=== PATIENT | female | born 1960 | race Caucasian/White ===

== ENCOUNTER 2016-10-01 18:28 | Emergency (ER) | payer MEDICAID ==
[~2016-10-01] VITALS: Ht 154.9 cm; Wt 93.0 kg
[~2016-10-01 18:28] MED LIST: FOLI1TAB19; HYDR200T5; LOSA50TA39; [UNRECOGNIZED DRUG - CODE]
[2016-10-01 18:42] VITALS: BP 176/105
--- NOTE | 2016-10-01 19:00 | NUR ---
Patient taken from ED lobby to XRAY via wheelchair by tech.
[2016-10-01 19:30] LABS: BASOPHILS # (AUTO) 0.2 K/uL (0.00-0.22); BASOPHILS % (AUTO) 1.5 % (0.0-2.0); EOSINOPHILS # (AUTO) 0.2 K/uL (0-0.4); HEMATOCRIT 43.1 % (36-48); HEMOGLOBIN 14.3 g/dL (12.0-16.0); LYMPHOCYTES # (AUTO) 2.9 K/uL (2.5-16.5); LYMPHOCYTES % (AUTO) 27.5 % (20.5-51.1); MEAN CORPUSCULAR HEMOGLOBIN 29 pg (27-31); MEAN CORPUSCULAR HGB CONC 33 g/dL (33-37); MEAN CORPUSCULAR VOLUME 87 fL (80-94); MONOCYTES # (AUTO) 0.6 K/uL (0.8-1.0); MONOCYTES % (AUTO) 5.6 % (1.7-9.3); NEUTROPHILS # (AUTO) 6.8 K/uL (1.8-7.7); NEUTROPHILS % (AUTO) 63.4 % (42.2-75.2); PLATELET COUNT (AUTO) 253 K/uL (140-450); RED BLOOD CELL COUNT(AUTO) 4.96 MIL/uL (4.20-5.40); RED CELL DISTRIBUTION WIDTH 13.2 % (11.6-13.7); WHITE BLOOD COUNT (AUTO) 10.7 K/uL (4.8-10.8)
[2016-10-01 19:54] LABS: ALBUMIN 4.2 g/dL (3.4-5.0); ANION GAP 10.1 (8-16); CALCIUM 9.2 mg/dL (8.5-10.1); CARBON DIOXIDE 31.5 mmol/L (21-32); CREATININE 0.7 mg/dL (0.6-1.3); INR 1.1 (0.8-1.2); POTASSIUM 3.6 mmol/L (3.5-5.1); PROTHROMBIN TIME 10.6 secs (10.8-13.4); TOTAL BILIRUBIN 0.3 mg/dL (0.0-1.0); TOTAL PROTEIN, SERUM 8.9 g/dL (6.4-8.2)
--- NOTE | 2016-10-01 21:02 | NUR ---
PT TAKEN TO BED 3
--- NOTE | 2016-10-01 21:04 | NUR ---
Dr. Packer evaluating patient at bedside.
[2016-10-01] MEDS ORDERED: KETOROLAC 60 MG/2 ML VIAL IM ONE (21:10)
--- NOTE | 2016-10-01 21:10 | NUR ---
PATIENT PRESENTS TO ED WITH C/O CHEST PAIN AND ANXIETY . PT DENIES N/V/D; SKIN IS PINK/WARM/DRY; AAOX4 WITH EVEN AND STEADY GAIT; LUNGS CLEAR BL; HR EVEN AND REGULAR; PT DENIES ANY FEVER, SOB, OR COUGH AT THIS TIME; PATIENT STATES PAIN OF 5/10 AT THIS TIME; VSS; PATIENT POSITIONED FOR COMFORT; HOB ELEVATED; BEDRAILS UP X2; BED DOWN. ER MD MADE AWARE OF PT STATUS.
[2016-10-01 21:32] VITALS: BP 156/99
== END 2016-10-01 21:25 | disposition home or self-care (01) ==
LOC: MED 18:28
DX: R07.89 Other chest pain (principal); J44.9 Chronic obstructive pulmonary disease, unspecified; I10 Essential (primary) hypertension; Z88.1 Allergy status to other antibiotic agents
CPT/HCPCS: 36415; 71010; 80053; 83880; 84484; 85025; 85610; 85730; 93005; 96372; 99285; J1885

== ENCOUNTER 2017-02-15 22:09 | Emergency (ER) | payer MEDICAID ==
[~2017-02-15] VITALS: Ht 154.9 cm; Wt 93.4 kg
[~2017-02-15 22:09] MED LIST changes: -FOLI1TAB19; +FOLIC ACID1 M1; +HUMIRA40 MG/0.1; -HYDR200T5; -LOSA50TA39; +LOSARTAN POTASS50 MG; +PLAQUENIL200 M1; -[UNRECOGNIZED DRUG - CODE]
[2017-02-15 22:16] VITALS: BP 139/71
[2017-02-16] MEDS: KETOROLAC 60 MG/2 ML VIAL IM ONE (00:24)
[2017-02-16 00:28] VITALS: BP 124/68
== END 2017-02-16 00:29 | disposition home or self-care (01) ==
LOC: MED 22:09
DX: S90.121A Contusion of right lesser toe(s) without damage to nail, initial encounter (principal); I10 Essential (primary) hypertension; J44.9 Chronic obstructive pulmonary disease, unspecified; Z88.1 Allergy status to other antibiotic agents; Z79.899 Other long term (current) drug therapy; W22.03XA Walked into furniture, initial encounter; Y93.89 Activity, other specified; Y92.89 Other specified places as the place of occurrence of the external cause; Y99.8 Other external cause status
CPT/HCPCS: 73630; 96372; 99284; J1885

== ENCOUNTER 2018-05-02 22:46 | Emergency (ER) | payer MEDICAID ==
[~2018-05-02] VITALS: Ht 157.5 cm; Wt 91.6 kg
[~2018-05-02 22:46] MED LIST changes: +FOLI1TAB19; -FOLIC ACID1 M1; -HUMIRA40 MG/0.1; +HYDR200T5; +LOSA50TA66; -LOSARTAN POTASS50 MG; -PLAQUENIL200 M1; +[UNRECOGNIZED DRUG - CODE]
[2018-05-02 22:51] VITALS: BP 147/81
--- NOTE | 2018-05-02 23:00 | NUR ---
57/F PRESENTS TO ED, C/O 11/23 NONRADIATING CHEST PRESSURE, INTERMITTENTLY X3 DAYS. PT REPORTS HAVING COLD SYMPTOMS AND SUBJECTIVE FEVER 3 DAYS, AFEBRILE AT THIS TIME. PT REPORTS NONPRODUCTIVE COUGH X3 DAYS. PT DENIES SOB OR N/V. PT AOX4, GCS 15, RR EVEN AND UNLABORED. HX HTN, ASTHMA, RA, ANEMIA RX HUMIRA, PLAQUENIL, LOSARTAN, FERROUS SULFATE, CALCIUM
[2018-05-02] MEDS ORDERED: ASPIRIN 81 MG TAB.CHEW PO ONE (23:05)
[2018-05-02] MEDS ORDERED: NACL 0.9% 1,000 ML IV ONE (23:05)
[2018-05-02] MEDS ORDERED: FOLIC ACID (23:17)
[2018-05-02] MEDS ORDERED: CALC-1086 (23:17)
[2018-05-02] MEDS ORDERED: KETOROLAC 30 MG/ML VIAL IVP ONE (23:20)
[2018-05-02 23:29] LABS: BASOPHILS % (AUTO) 0.3 % (0.0-2.0); EOSINOPHILS # (AUTO) 0.2 K/uL (0-0.4); EOSINOPHILS % (AUTO) 2.5 % (0.0-4.0); HEMOGLOBIN 12.9 g/dL (12.0-16.0); LYMPHOCYTES # (AUTO) 3.7 K/uL (2.5-16.5); LYMPHOCYTES % (AUTO) 38.8 % (20.5-51.1); MEAN CORPUSCULAR HEMOGLOBIN 28 pg (27-31); MEAN CORPUSCULAR HGB CONC 32 g/dL (33-37); MONOCYTES # (AUTO) 0.5 K/uL (0.8-1.0); MONOCYTES % (AUTO) 5.5 % (1.7-9.3); NEUTROPHILS # (AUTO) 5.1 K/uL (1.8-7.7); NEUTROPHILS % (AUTO) 52.9 % (42.2-75.2); PLATELET COUNT (AUTO) 222 K/uL (140-450); RED BLOOD CELL COUNT(AUTO) 4.55 MIL/uL (4.20-5.40); RED CELL DISTRIBUTION WIDTH 14.4 % (11.6-13.7); WHITE BLOOD COUNT (AUTO) 9.6 K/uL (4.8-10.8)
[2018-05-02 23:44] LABS: ANION GAP 10.9 (8-16); POTASSIUM 3.9 mmol/L (3.5-5.1)
[2018-05-02 23:49] LABS: TOTAL BILIRUBIN 0.3 mg/dL (0.0-1.0)
[2018-05-02 23:50] LABS: ALBUMIN 3.8 g/dL (3.4-5.0)
[2018-05-02 23:54] LABS: PROTHROMBIN TIME 9.7 secs (10.8-13.4)
[2018-05-03 00:13] VITALS: BP 146/77
--- NOTE | 2018-05-03 00:13 | NUR ---
Patient discharged with v/s stable. Written and verbal after care instructions given and explained. Patient alert, oriented and verbalized understanding of instructions. Ambulatory with steady gait. All questions addressed prior to discharge. ID band removed. Patient advised to follow up with PMD. Rx of PROMETHAZINE given. Patient educated on indication of medication including possible reaction and side effects. Opportunity to ask questions provided and answered.
== END 2018-05-03 00:13 | disposition home or self-care (01) ==
LOC: MED 22:46
DX: J06.9 Acute upper respiratory infection, unspecified (principal); J44.9 Chronic obstructive pulmonary disease, unspecified; I10 Essential (primary) hypertension; Z88.1 Allergy status to other antibiotic agents; Z79.899 Other long term (current) drug therapy
CPT/HCPCS: 36415; 71045; 80053; 84484; 85025; 85610; 85730; 93005; 96374; 99284; J1885; J7030; Q0092

== ENCOUNTER 2018-11-09 16:08 | Emergency (ER) | payer MEDICAID ==
[~2018-11-09] VITALS: Ht 165.1 cm; Wt 81.6 kg
[~2018-11-09 16:08] MED LIST changes: +CALC-1086; +FOLIC ACID
[2018-11-09 16:21] VITALS: BP 193/93
--- NOTE | 2018-11-09 16:26 | NUR ---
PT BIB SON TO THE ED WITH THE CHIEF C/O PALPITATION. PT WAS HYPERVENTILATING. A/O X4. FOLLOWS COMMAND. HR 86 SPO2 100 IN ROOM AIR. HAS ELEVATED BP. PT HAS NOT TAKEN HER LOSARTAN TODAY. PT HAS HX OF ANXIETY, ASTHMA, RA, HTN. C/O LEFT CHEST PAIN 12/24. LUNGS CLEAR. ABDOMEN SOFT, ROUND AND NON-TENDER. ACTIVE BOWEL SOUND. DENIES FEVER. DENIES N/V/D. ER MD AWARE OF PT STATUS.
--- NOTE | 2018-11-09 17:55 | NUR ---
Pt. appears to be relaxed, resting in bed. Breathing normally. SPO2 97% in room air. No Sob or acute respiratory distress noted. Pt. verbalized feeling better.
[2018-11-09 19:02] VITALS: BP 122/59
== END 2018-11-09 19:00 | disposition home or self-care (01) ==
LOC: MED 16:08
DX: F41.0 Panic disorder [episodic paroxysmal anxiety] (principal); J45.909 Unspecified asthma, uncomplicated; I10 Essential (primary) hypertension; M06.9 Rheumatoid arthritis, unspecified; Z79.899 Other long term (current) drug therapy; Z88.1 Allergy status to other antibiotic agents
CPT/HCPCS: 93005; 99283; 99284

== ENCOUNTER 2020-03-06 19:07 | Inpatient (IN) | payer MEDICAID, SELFPAY ==
[~2020-03-06] VITALS: Ht 154.9 cm; Wt 89.8 kg
[2020-03-06 19:14] VITALS: BP 170/90
--- NOTE | 2020-03-06 19:24 | NUR ---
PT TAKEN TO ER BED 8 VIA W/C
--- NOTE | 2020-03-06 19:35 | NUR ---
PT BIB SELF FOR C/O MIGRAINE X 2 DAYS. PT A&O X 4. PERRLA 3MM BRISK. PT PRESENTS TEARFUL, "THE PAIN IS BAD, I THINK IT COMES BECAUSE I HAVE ANXIETY." PT STATES PAIN RADIATED FROM FRONTAL LOBE TO OCCIPITAL LOBE. PT STATES LAST OTC MEDICATION WAS TAKEN YESTERDAY AT 1800 WITH INEFFECTIVE RESULTS. PT DENIES DIZZYNESS, SENSITIVITY TO LIGHT, N/V/D. PT STATES," I FEEL VERY STRESSED AND LIKE I'M HAVING ANIXETY RIGHT NOW." PT ON PULPWOOD CUTTER. MEDHX: ANXIETY, DEPRESSION, ARTHRITIS ALLERGIES: AMOXICILLIN
--- NOTE | 2020-03-06 19:59 | NUR ---
ERMD AT BEDSIDE.
[2020-03-06] MEDS ORDERED: NACL 0.9% 3,000 ML IV ONE (20:20)
[2020-03-06] MEDS ORDERED: NACL 0.9% 2,000 ML IV ONE (20:20)
[2020-03-06] MEDS ORDERED: VANCOMYCIN 1,000 MG in DEXTROSE 5% 250 ML IV ONE (20:20)
[2020-03-06] MEDS ORDERED: MORPHINE SULFATE 4 MG/ML SYR ONE (20:26)
[2020-03-06] MEDS ORDERED: diphenhydrAMINE 50 MG/ML VIAL IVP ONE (20:30)
[2020-03-06] MEDS ORDERED: MORPHINE SULFATE 4 MG/ML SYR IVP ONE (20:30)
[2020-03-06] MEDS ORDERED: ACETAMINOPHEN EXTRA STRENGTH 500 MG TAB PO ONE (20:30)
[2020-03-06] MEDS ORDERED: PROCHLORPERAZINE 10 MG/2 ML VIAL IVP ONE (20:30)
[2020-03-06] MEDS ORDERED: LORazepam 2 MG/ML VIAL ONE (20:57)
[2020-03-06 21:03] LABS: BASOPHILS % (AUTO) 0.4 % (0.0-2.0); EOSINOPHILS # (AUTO) 0.1 K/uL (0-0.4); HEMATOCRIT 42.2 % (36-48); HEMOGLOBIN 14.2 g/dL (12.0-16.0); LYMPHOCYTES # (AUTO) 1.2 K/uL (2.5-16.5); LYMPHOCYTES % (AUTO) 10.1 % (20.5-51.1); MEAN CORPUSCULAR HEMOGLOBIN 29 pg (27-31); MEAN CORPUSCULAR HGB CONC 34 g/dL (33-37); MEAN CORPUSCULAR VOLUME 87.4 fL (80-94); MONOCYTES # (AUTO) 0.6 K/uL (0.8-1.0); NEUTROPHILS # (AUTO) 10.2 K/uL (1.8-7.7); NEUTROPHILS % (AUTO) 83.5 % (42.2-75.2); PLATELET COUNT (AUTO) 200 K/uL (140-450); RED BLOOD CELL COUNT(AUTO) 4.83 MIL/uL (4.20-5.40); RED CELL DISTRIBUTION WIDTH 13.9 % (11.6-13.7); WHITE BLOOD COUNT (AUTO) 12.2 K/uL (4.8-10.8)
[2020-03-06] MEDS ORDERED: LORazepam 2 MG/ML VIAL IVP ONE (21:05)
--- NOTE | 2020-03-06 21:10 | NUR ---
PT TAKEN TO CT
--- NOTE | 2020-03-06 21:10 | NUR ---
PT STATES UNABLE TO GIVE UA AT THIS TIME, IVF BEING GIVEN. ERMD MADE AWARE.
[2020-03-06 21:14] LABS: ANION GAP 13.8 (8-16); CARBON DIOXIDE 27.8 mmol/L (21-32); CREATININE 0.8 mg/dL (0.6-1.3); POTASSIUM 3.6 mmol/L (3.5-5.1); TOTAL BILIRUBIN 0.9 mg/dL (0.0-1.0)
[2020-03-06] MEDS ORDERED: VANCOMYCIN 1,000 MG VIAL ONE (21:22)
[2020-03-06] MEDS ORDERED: cefTRIAXone 1,000 MG VIAL ONE (21:23)
--- NOTE | 2020-03-06 21:38 | NUR ---
PT RETURNED FROM CT.
--- NOTE | 2020-03-06 21:40 | NUR ---
PT GAVE UA SAMPLE.
--- NOTE | 2020-03-06 21:50 | NUR ---
CONSENT GIVEN FOR LUMBAR PUNCTURE AND SIGNED BY ERMD AND PATIENT. REASONS AND RISKED EXPLAINED TO PT.
[2020-03-06] MEDS ORDERED: LIDOCAINE MPF 1% 5 ML ONE ×2 (22:08→22:10)
[2020-03-06] MEDS ORDERED: LIDOCAINE MPF 1% 10 MG/ML VIAL INJ ONE (22:10)
[2020-03-06 22:15] LABS: APPEARANCE,URINE CLEAR (CLEAR); BILIRUBIN,URINE NEGATIVE (NEGATIVE); BLOOD, URINE NEGATIVE (NEGATIVE); COLOR,URINE YELLOW (YELLOW); LEUKOCYTE ESTERASE ,URINE NEGATIVE (NEGATIVE); NITRITE, URINE NEGATIVE (NEGATIVE); UGLUCOSE NEGATIVE (NEGATIVE)
--- NOTE | 2020-03-06 22:15 | NUR ---
Dr. Gutierrez at patient bedside for procedure.
--- NOTE | 2020-03-06 22:20 | NUR ---
Mark klein in ED - 03/06/20 at 2324 by [email or web address] CSF COLLEZHANE. GIVEN TO TOPPER PACKER
--- NOTE | 2020-03-06 22:40 | NUR ---
CSF COLLECED. GIVEN TO MILL LABOR SUPERVISOR KALEB.
--- NOTE | 2020-03-06 23:41 | NUR ---
Patient appears to be resting comfortably in bed. Vital Signs within normal limits. Respirations even and unlabored. Pt remains on ekg monitor.
[2020-03-06 23:57] LABS: CSF GLUCOSE 58 mg/dL (40-70); CSF PROTEIN 40.3 mg/dL (15-45)
--- NOTE | 2020-03-07 01:22 | NUR ---
Patient appears to be resting comfortably in bed. Vital Signs within normal limits. Respirations even and unlabored. Pt remains on lunchroom monitor. Bed is locked and in lowest position.
--- NOTE | 2020-03-07 03:43 | NUR ---
PT AMBULATED TO RESTROOM WITH STEADY GAIT.
--- NOTE | 2020-03-07 03:47 | NUR ---
PT AMBULATED TO BED WITH STEADY GAIT. PT ATTATCHED TO GRAB JACK WORKER. NO C/O PAIN AT THIS TIME. BED LOCKED AND IN LOWEST POSTION.
--- NOTE | 2020-03-07 04:58 | NUR ---
Patient appears to be resting comfortably in bed. Vital Signs within normal limits. Respirations even and unlabored. Pt remain on clinical research monitor. Pt bed is locked and in lowest position.
--- NOTE | 2020-03-07 06:00 | NUR ---
Patient appears to be resting comfortably in bed. Vital Signs within normal limits. Respirations even and unlabored. PT REMAINS ON CARDIAC MONTIOR.
--- NOTE | 2020-03-07 06:15 | NUR ---
PT AMBULATED TO RESTROOM WITH STEADY GAIT.
--- NOTE | 2020-03-07 07:20 | NUR ---
Note latoya in EDM - 03/07/20 at 0724 by MICHELLE Patient will be admitted to care of DR. YEH. Admited to TELE. Will go to room 126A. Belongings list completed. Report to SONDRA CRUZ.
--- NOTE | 2020-03-07 07:20 | NUR ---
Patient will be admitted to care of DR. YEH. Admited to TELE. Will go to room 126A. Belongings list completed. Report to SONDRA CRUZ.
--- NOTE | 2020-03-07 07:20 | NUR ---
RECEIVED REPORT FROM ER NURSE. PATIENT ABLE TO AMBULATE TO [facility] BED WITH STEADY GAIT. HEADACHE WITHIN TOLERABLE AT THIS TIME. AAOX3, CALM, COOPERATIVE, APPROPRIATE AFFECT. SKIN COLOR APPROPRIATE TO ETHNICITY, WARM TO TOUCH. SKIN INTACT. RESPIRATIONS EVEN, UNLABORED, ON ROOM AIR. IV SITE INTACT, PATENT, ON SALINE LOCK. REVIEWED PLAN OF CARE WITH PATIENT. ORIENTED PATIENT TO ROOM AND CALL LIGHT. SAFETY MEASURES IN PLACE, CALL LIGHT WITHIN REACH. WILL CONTINUE TO MONITOR.
--- NOTE | 2020-03-07 07:20 | NUR ---
Patient will be admitted to care of DR. YEH. Admited to TELE. Will go to room 126A. Belongings list completed. Report to SONDRA CRUZ.
[2020-03-07 08:00] VITALS: BP 142/76
[2020-03-07] MEDS ORDERED: guaiFENesin DM 200/20 MG-10 ML 10 ML UDC PO PRN (08:00)
[2020-03-07] MEDS ORDERED: DOCUSATE SODIUM 100 MG GELCAP PO PRN (08:00)
[2020-03-07] MEDS ORDERED: ACETAMINOPHEN 325 MG TAB PO PRN (08:00)
[2020-03-07] MEDS ORDERED: ONDANSETRON 4 MG/2 ML VIAL IM/IVP PRN (08:00)
[2020-03-07] MEDS ORDERED: ZOLPIDEM 5 MG TAB PO PRN (08:00)
[2020-03-07] MEDS ORDERED: POTASSIUM CHLORIDE 10 MEQ TABER PO PRN (08:00)
[2020-03-07 08:38] LABS: PROTHROMBIN TIME 10.9 secs (10.8-13.4)
[2020-03-07 08:49] LABS: CHOL/HDL RATIO 3.6 (1-4.5); FREE T4 (FREE THYROXINE) 1.09 ng/dL (0.76-1.46); THYROID STIMULATING HORMONE 1.27 uIU/mL (0.34-3.74)
[2020-03-07] MEDS: PANTOPRAZOLE 40 MG TABEC PO SCH (08:57)
[2020-03-07] MEDS: HYDROcodone/APAP 7.5/325 MG 1 TAB PO PRN ×2 (08:58→19:34)
[2020-03-07] MEDS: LOSARTAN 50 MG TAB PO SCH (08:58)
--- NOTE | 2020-03-07 09:02 | NUR ---
SCHEDULED MEDICATIONS DUE GIVEN. NORCO GIVEN FOR COMPLAINTS OF HEADACHE. WILL CONTINUE TO MONITOR.
--- NOTE | 2020-03-07 09:15 | NUR ---
SOCIAL WORK NOTE: Patient's Orientation Unable To Assess Information Provided By ASHLEY FOSTER - DAUGHTER Comments SW WAS UNABLE TO MEET PATIENT AT BEDSIDE DUE TO MEDICAL CONDITION. SW COMPLETED ASSESSMENT WITH PATIENT'S DAUGHTER, ASHLEY. Cover Mat Machine Operator, Realtionship and Phone Number ASHLEY FOSTER [phone] Healthcare Power of Internet Marketing Director No Does Patient Have a POLST No Identifying Problems No Social Work Triggers Is A Social Work Consult Needed No Mandate Report Filed No Explanation Of Identifying Problems PATIENT IS A 59-YEAR-OLD FEMALE ADMITTED FOR HEADACHE. PATIENT HAS PMHX OF HYPERTENSION AND RHEUMATOID ARTHRITIS. DAUGHTER REPORTED NO HISTORY OF MENTAL HEALTH OR SUBSTANCE ABUSE. Admitted From Home Pre-Admission Level Of Functioning Status Independent/Ambulatory Prior Resources/Services Used In Last 12 Months No Prior Resources Used Prior DME No Prior DME Used Dialysis Comments DAUGHTER REPORTED NO DIALYSIS FOR PATIENT. Living Situation Lives With Family House Patient Had Caregiver No Home Support No Caregiver Issues Financial Issues No Known Financial Issue Referral To The Financial Counselor Needed No Factors/Needs No D/C Needs Identified Explanation And Or Other Factors Affecting/Possible DC Needs PATIENTS DAUGHTER STATED THAT SHE WILL PICK PATIENT UP AT DISCHARGE, Pt/Rep Participated In Discharge Plan Yes Patient/Family Agress With Discharge Plan Yes Discharge Plan Comments TENTATIVE DISCHARGE PLAN IS FOR PATIENT TO RETURN HOME. DC Plan Status Initiated
--- NOTE | 2020-03-07 09:15 | NUR ---
SOCIAL WORK NOTE: Patient's Orientation Unable To Assess Information Provided By ASHLEY FOSTER - DAUGHTER Comments SW WAS UNABLE TO MEET PATIENT AT BEDSIDE DUE TO MEDICAL CONDITION. SW COMPLETED ASSESSMENT WITH PATIENT'S DAUGHTER, ASHLEY. Dope Mixer, Realtionship and Phone Number ASHLEY FOSTER [phone] Healthcare Power of Automation Application Engineer No Does Patient Have a POLST No Identifying Problems No Social Work Triggers Is A Social Work Consult Needed No Mandate Report Filed No Explanation Of Identifying Problems PATIENT IS A 59-YEAR-OLD FEMALE ADMITTED FOR HEADACHE. PATIENT HAS PMHX OF HYPERTENSION AND RHEUMATOID ARTHRITIS. DAUGHTER REPORTED NO HISTORY OF MENTAL HEALTH OR SUBSTANCE ABUSE. Admitted From Home Pre-Admission Level Of Functioning Status Independent/Ambulatory Prior Resources/Services Used In Last 12 Months No Prior Resources Used Prior DME No Prior DME Used Dialysis Comments DAUGHTER REPORTED NO DIALYSIS FOR PATIENT. Living Situation Lives With Family House Patient Had Caregiver No Home Support No Caregiver Issues Financial Issues No Known Financial Issue Referral To The Financial Counselor Needed No Factors/Needs No D/C Needs Identified Explanation And Or Other Factors Affecting/Possible DC Needs PATIENTS DAUGHTER STATED THAT SHE WILL PICK PATIENT UP AT DISCHARGE, Pt/Rep Participated In Discharge Plan Yes Patient/Family Agress With Discharge Plan Yes Discharge Plan Comments TENTATIVE DISCHARGE PLAN IS FOR PATIENT TO RETURN HOME. DC Plan Status Initiated
[2020-03-07] MEDS ORDERED: lisinopriL 10 MG TAB PO SCH (11:05)
[2020-03-07] MEDS ORDERED: ATORVASTATIN 20 MG TAB PO SCH (11:05)
--- NOTE | 2020-03-07 11:40 | NUR ---
PATIENT SITTING DOWN IN BED TALKING ON HER PHONE. NO DISTRESS NOTED. DENIES ANY PAIN. SCHEDULED MEDICATIONS DUE GIVEN. WILL CONTINUE TO MONITOR.
[2020-03-07 12:00] VITALS: BP 128/72
[2020-03-07] MEDS ORDERED: methylPREDNISolone SS 125 MG/2 ML VIAL IVP SCH (13:00)
--- NOTE | 2020-03-07 13:48 | NUR ---
SCHEDULED MEDICATIONS DUE GIVEN. WILL CONTINUE TO MONITOR.
[2020-03-07 14:46] LABS: BARBITURATE, URINE NEGATIVE ng/ml (NEG <=200)
[2020-03-07 14:47] LABS: BENZODIAZEPINE, URINE POSITIVE ng/mL (NEG <=200); CANNABINOID, URINE NEGATIVE ng/mL (NEG <=50); COCAINE, URINE NEGATIVE ng/mL (NEG <=300); OPIATE, URINE POSITIVE ng/mL (NEG <=2000); PHENCYCLIDINE SCREEN,URINE NEGATIVE ng/mL (NEG <=25)
--- NOTE | 2020-03-07 15:40 | NUR ---
PATIENT HAS BEEN SCREENED AND CATEGORIZED LOW NUTRITION RISK. PATIENT WILL BE SEEN WITHIN 7 DAYS OF ADMISSION. 03/13/[address]
[2020-03-07 16:00] VITALS: BP 131/69
--- NOTE | 2020-03-07 19:15 | NUR ---
RECEIVED BEDSIDE REPORT FROM DAY SHIFT NURSE FOR CONTINUITY OF CARE. PT IS AWAKE AND ALERT. DROPLET PRECAUTIONS IN PLACE FOR RULE OUT COVID. COVID 19 PCR PENDING, RAPID TEST IS NEGATIVE. PT IS AMBULATORY AND HAS BATHROOM PRIVILEGES. A&OX4. ON RA WITH BREATHING UNLABORED. SR ON TELE MONITORING. SKIN IS WARM, DRY, AND INTACT. IV'S ARE IN THE LEFT AC 20 GAUGE AND RIGHT HAND 24 GAUGE SALINE LOCKED. PLAN OF CARE DISCUSSED. BED IS IN THE LOWEST POSITION AND CALL LIGHT IS WITHIN REACH. COMPLAINS OF PAIN AT THIS TIME, NORCO PRN FOR PAIN WILL BE ADMINISTERED BY DAY SHIFT NURSE. PT IS STABLE.
--- NOTE | 2020-03-07 19:32 | NUR ---
GAVE REPORT TO HERBICIDE SPRAYER NURSE FOR CONTINUITY OF CARE. PATIENT IN STABLE CONDITION.
[2020-03-07 20:00] VITALS: BP 150/79
--- NOTE | 2020-03-07 20:00 | NUR ---
PT WAS ASSESSED PER PROTOCOL AND THERE ARE NO APPARENT SIGNS OF DISTRESS AT THIS TIME. PT IS STABLE. DROPLET PRECAUTIONS IN PLACE. CALL LIGHT WITHIN REACH.
[2020-03-07] MEDS: METOPROLOL 25 MG TAB PO SCH (20:54)
--- NOTE | 2020-03-07 22:00 | NUR ---
CONSENT WAS SIGNED AND PT WAS AWARE ABOUT THE PROCEDURE THAT IS GOING TO OCCUR TOMORROW. PT DID NOT HAVE ANY QUESTIONS AT THIS TIME. PT READ THROUGH THE CONSENT AND SIGNED CONSENT. WILL BE PLACED IN THE CHART.
[2020-03-08] VITALS: BP 126/68
--- NOTE | 2020-03-08 | NUR ---
PT IS NOW NPO ORDERED AFTER MIDNIGHT. LIQUIDS WERE REMOVED FROM THE BEDSIDE AND FOOD WAS ALSO REMOVED. PT IS AWARE OF WHY SHE IS NPO AND EDUCATION WAS PROVIDED. PT VERBALIZED UNDERSTANDING.
--- NOTE | 2020-03-08 02:00 | NUR ---
ROUNDED ON PT. SHE IS UP TO THE RESTROOM. PT VOIDED BUT DID NOT HAVE A BM. NO DISTRESS IS NOTED. PT'S GAIT IS STEADY INDEPENDENTLY. STANDBY ASSISTANCE WAS AVAILABLE. PT IS NOW BACK IN BED AND STABLE. DENIES PAIN AT THIS TIME.
[2020-03-08 04:00] VITALS: BP 123/59
--- NOTE | 2020-03-08 04:00 | NUR ---
PT IS AWAKE AND LAYING IN SEMI FOWLERS POSITION. NO PAIN OR DISTRESS NOTED. IV IS SALINE LOCKED. DROPLET PRECAUTIONS IN PLACE. BELONGINGS AND CELL PHONE AT BEDSIDE. WILL CONTINUE TO MONITOR.
[2020-03-08 05:10] LABS: BASOPHILS % (AUTO) 0.2 % (0.0-2.0); EOSINOPHILS % (AUTO) 0.3 % (0.0-4.0); HEMATOCRIT 39.4 % (36-48); HEMOGLOBIN 13.2 g/dL (12.0-16.0); LYMPHOCYTES % (AUTO) 9.1 % (20.5-51.1); MEAN CORPUSCULAR HEMOGLOBIN 30 pg (27-31); MEAN CORPUSCULAR HGB CONC 34 g/dL (33-37); MEAN CORPUSCULAR VOLUME 88.3 fL (80-94); MONOCYTES # (AUTO) 0.5 K/uL (0.8-1.0); MONOCYTES % (AUTO) 4.2 % (1.7-9.3); NEUTROPHILS # (AUTO) 9.8 K/uL (1.8-7.7); NEUTROPHILS % (AUTO) 86.2 % (42.2-75.2); PLATELET COUNT (AUTO) 220 K/uL (140-450); RED BLOOD CELL COUNT(AUTO) 4.47 MIL/uL (4.20-5.40); WHITE BLOOD COUNT (AUTO) 11.3 K/uL (4.8-10.8)
[2020-03-08 05:46] LABS: ANION GAP 16.2 (8-16); CARBON DIOXIDE 25.5 mmol/L (21-32); CREATININE 0.8 mg/dL (0.6-1.3); POTASSIUM 3.7 mmol/L (3.5-5.1)
--- NOTE | 2020-03-08 06:00 | NUR ---
PT IS SLEEPING. NO SIGNS OF DISTRESS. CHEST RISE AND FALL IS SYMMETRICAL. BED IS IN THE LOWEST POSITION. CELL PHONE IS IN BED NEXT TO PATIENT. SHE IS STABLE AT THIS TIME.
[2020-03-08] MEDS: methylPREDNISolone SS 40 MG/ML VIAL IVP SCH ×3 (06:17→20:30)
--- NOTE | 2020-03-08 07:25 | NUR ---
ENDORSED PT TO DAY SHIFT NURSE FOR CONTINUITY OF CARE. PT IS STABLE AT THIS TIME. PLAN OF CARE DISCUSSED.
--- NOTE | 2020-03-08 07:30 | NUR ---
RECEIVED REPORT FROM PM RNGUSTABO. PT CAME FROM HOME. ROMANSH SPEAKING. CC: HEADACHE X2DAYS RADIATING TO LT JAW. DX: HEADACHE, SIRS. HX: HTN, DEPRESSION, ANXIETY, RHEUMTOIDARTHRITIS. ALLERGIES: AMOXICILLIN, ATORVASTATIN, LISINOPRIL. ON TELE PT IS SR 60-70. PT IS A FULL CODE. IV: LAC 20G SL, RT HAND 24G SL. PT IS NPO. RAPID IS NEGATIVE, PENDING PCR. SKIN IS INTACT. PT IS AMBULATORY. PT IS VISION IMPAIRED. PLAN: SURGICAL BIOPSY OF TH ELT TEMPORAL ARTERY.
[2020-03-08 08:00] VITALS: BP 148/77
[2020-03-08] MEDS: LOSARTAN 50 MG TAB PO SCH (09:00)
[2020-03-08] MEDS: PANTOPRAZOLE 40 MG TABEC PO SCH (09:00)
[2020-03-08] MEDS: METOPROLOL 25 MG TAB PO SCH ×2 (09:00→20:30)
--- NOTE | 2020-03-08 09:00 | NUR ---
UNABLE TO PASS MEDS DUE TO PT TAKEN TO PROCEDURE.
[2020-03-08] MEDS ORDERED: BUPIVACAINE-MPF 0.25% 30 ML VIAL INJ ONE (09:46)
[2020-03-08] MEDS ORDERED: LIDOCAINE 1% 500 MG/50 ML VIAL ONE (09:46)
[2020-03-08] MEDS ORDERED: fentaNYL citrate 0.05 MG/ML VIAL ONE (09:58)
[2020-03-08] MEDS ORDERED: SEVOFLURANE 250 ML BTL INH ONE (09:58)
[2020-03-08] MEDS ORDERED: LIDOCAINE 2% 100 MG/5 ML SYR IVP ONE (09:58)
[2020-03-08] MEDS ORDERED: ONDANSETRON 4 MG/2 ML VIAL ONE (09:58)
[2020-03-08] MEDS ORDERED: DEXAMETHASONE 10 MG/ML VIAL ONE (09:58)
[2020-03-08] MEDS ORDERED: PROPOFOL 200 MG/20 ML VIAL IV ONE (09:58)
[2020-03-08] MEDS ORDERED: MIDAZOLAM 2 MG/2 ML VIAL ONE (09:58)
[2020-03-08] MEDS ORDERED: KETOROLAC 30 MG/ML VIAL ONE (09:58)
[2020-03-08] MEDS ORDERED: ONDANSETRON 4 MG/2 ML VIAL IVP PRN (10:35)
[2020-03-08] MEDS ORDERED: HYDROmorphone 1 MG/ML AMP IVP PRN (10:35)
--- NOTE | 2020-03-08 11:00 | NUR ---
PT RETURNED FROM PROCEDURE. TOOK VITAL SIGNS. VS ARE STABLE. PT IS RESTING IN BED.
--- NOTE | 2020-03-08 11:32 | NUR ---
DISCHARGE PLANNING: THIS IS A 9 Y/O FEMALE PATIENT FROM HOME, WHO CAME IN DUE TO LEFT SIDED HEADACHE. PAST MEDICAL HISTORY INCLUDE HTN, RA. INITIAL DIAGNOSIS OF HEADACHE; SYSTEMIC INFLAMMATORY RESPONSE SYNDROME. CURRENT LABS INCLUDE WBC 11.3, H/H 13.2/39.4, NA/K 139/3.7, BUN/CREA 8/0.8. ON ROCEPHIN. SURGICAL CONSULT IN PLACE AND SEEN - RECOMMENDED TEMPORAL ARTERY BIOPSY THIS PM. DC PLAN PENDING ON PATIENT'S RESPONSE TO TREATMENT.
[2020-03-08 12:00] VITALS: BP 111/56
--- NOTE | 2020-03-08 15:00 | NUR ---
COMPLETED ROUND. PT IS HUNGRY. WAITING FOR DR ORDER FOR CHANGE IN DIET STATUS.
[2020-03-08 16:00] VITALS: BP 157/82
--- NOTE | 2020-03-08 17:00 | NUR ---
PT PLACED ON CCHO 60G DIET. GAVE PT A SANDWICH FOR THE TIME BEING.
--- NOTE | 2020-03-08 19:25 | NUR ---
TRANSFER OF CARE TO PM DICK CRUZ. PT IS RESTING IN BED. NO SIGNS OF DISTRESS. RESPIRATIONS ARE EVEN AND UNLABORED.
--- NOTE | 2020-03-08 19:26 | NUR ---
RECEIVED BEDSIDE REPORT FROM DAY RN FOR CONTINUITY OF CARE. PT IS AWAKE AND ALERT. DROPLET PRECAUTIONS IN PLACE FOR RULE OUT COVID. PT IS AMBULATORY AND HAS BATHROOM PRIVILEGES. A&OX4. ON RA WITH BREATHING UNLABORED. LUNG SOUNDS ARE CLEAR. SR ON TELE MONITORING. SKIN IS WARM, DRY, AND NON INTACT. PT S/P L TEMPORAL ARTERY EXCISIONAL BIOPSY TODAY. INCISION ON L TEMPORAL WITH STERI STRIPS ON. NO DRAINAGE NOTED. IV'S ARE IN THE RIGHT AC 20 GAUGE AND RIGHT HAND 24 GAUGE SALINE LOCKED. PLAN OF CARE DISCUSSED. BED IS IN THE LOWEST POSITION AND CALL LIGHT IS WITHIN REACH. PT IS STABLE.
[2020-03-08 20:00] VITALS: BP 135/71
--- NOTE | 2020-03-08 20:30 | NUR ---
VSS 135/71 HR 78 ADMINISTERED EH MEDICATIONS PER ORDERS, PT STATES MINIMAL [place] BUT TOLERABLE DOES NOT WANT ANY PAIN MEDICATION. PT REQUESTING INSOMNIA MEDICATION ADMINISTERED PRN AMBIEN. COVID PCR NEGATIVE INFORM ADMITTING MD. DROPLET ISOLATION D/C. POC DISCUSSED WITH PT. PT VERBALIZED UNDERSTANDING. CALL LIGHT IS WITHIN REACH. WILL CONTINUE TO MONITOR.
[2020-03-08] MEDS ORDERED: FLU VACCINE QS2020-21 0.5 ML SYR IMVAC PRN (21:05)
--- NOTE | 2020-03-08 22:08 | NUR ---
PT LAYING COMFORTABLY IN BED TALKING ON CELLPHONE DENIES ANY DISCOMFORT. ALL NEEDS MET. CALL LIGHT IS WITHIN REACH. WILL CONTINUE TO MONITOR.
[2020-03-08] MEDS: HYDROcodone/APAP 7.5/325 MG 1 TAB PO PRN (22:55)
[2020-03-09] VITALS: BP 138/67
--- NOTE | 2020-03-09 | NUR ---
VITAL SIGNS ARE WITHIN NORMAL LIMITS. ALL SAFETY MEASURES ARE IN PLACE. WILL CONTINUE TO MONITOR.
--- NOTE | 2020-03-09 02:03 | NUR ---
ROUNDS MADE. PT IS LAYING COMFORTABLY IN BED WITH EYES CLOSED. CHEST RISE AND FALL NOTED. ALL SAFETY MEASURES ARE IN PLACE. CALL LIGHT IS WITHIN REACH.
[2020-03-09 04:00] VITALS: BP 142/69
[2020-03-09] MEDS: methylPREDNISolone SS 40 MG/ML VIAL IVP SCH (04:14)
[2020-03-09] MEDS: HYDROcodone/APAP 7.5/325 MG 1 TAB PO PRN (04:21)
--- NOTE | 2020-03-09 04:21 | NUR ---
VSS. EH MEDICATION GIVEN PER ORDERS. PT WITH C/C OF HEADACHE NOW ON RIGHT SIDE STILL WITH BLURRY VISION BUT PER PT SOME IMPROVEMENT FROM WHEN SHE WAS ADMITTED. ADMINISTERED NORCO FOR HEADACHE WILL CONTINUE TO MONITOR.
[2020-03-09 06:05] LABS: BASOPHILS % (AUTO) 0.2 % (0.0-2.0); HEMATOCRIT 37.1 % (36-48); HEMOGLOBIN 12.3 g/dL (12.0-16.0); LYMPHOCYTES # (AUTO) 1.1 K/uL (2.5-16.5); LYMPHOCYTES % (AUTO) 5.7 % (20.5-51.1); MEAN CORPUSCULAR HEMOGLOBIN 29 pg (27-31); MEAN CORPUSCULAR HGB CONC 33 g/dL (33-37); MEAN CORPUSCULAR VOLUME 87.7 fL (80-94); MONOCYTES % (AUTO) 5.4 % (1.7-9.3); NEUTROPHILS # (AUTO) 16.4 K/uL (1.8-7.7); NEUTROPHILS % (AUTO) 88.7 % (42.2-75.2); PLATELET COUNT (AUTO) 229 K/uL (140-450); RED BLOOD CELL COUNT(AUTO) 4.23 MIL/uL (4.20-5.40); RED CELL DISTRIBUTION WIDTH 14.2 % (11.6-13.7); WHITE BLOOD COUNT (AUTO) 18.5 K/uL (4.8-10.8)
[2020-03-09 06:21] LABS: ANION GAP 14.3 (8-16); CARBON DIOXIDE 26.5 mmol/L (21-32); CREATININE 0.8 mg/dL (0.6-1.3); POTASSIUM 3.8 mmol/L (3.5-5.1)
--- NOTE | 2020-03-09 07:30 | NUR ---
GAVE BEDSIDE REPORT TO DAY RN. PT ENDORSED IN STABLE CONDITION.
--- NOTE | 2020-03-09 07:32 | NUR ---
RECEIVED REPORT FROM NIGHT NURSE PATIENT IS AAOX4 MONGOLIAN SPEAKING, ROOM AIR, SKIN NON INTACT WITH LEFT TEMPORAL INCISION, AMBULATORY, CONTINENT, IV SITES INTACT AND PATENT SALINE LOCK. WANT FLU VACCINE UPON DISCHARGE. SAFETY MEASURES IN PLACE AND CALL LIGHT WITHIN REACH. WILL CONTINUE TO MONITOR.
[2020-03-09 08:00] VITALS: BP 130/68
[2020-03-09] MEDS: PANTOPRAZOLE 40 MG TABEC PO SCH (08:16)
[2020-03-09] MEDS: LOSARTAN 50 MG TAB PO SCH (08:17)
[2020-03-09] MEDS: METOPROLOL 25 MG TAB PO SCH (08:17)
--- NOTE | 2020-03-09 08:19 | NUR ---
MEDICATION DUE GIVEN, CHECK VITAL SIGNS PRIOR TO BP MEDICATIONS BP 130/66 MI 60, PATIENT IS EATING AND STATED HEADACHE WAS RELEIVED BY MEDICATION GIVEN AT 0400. STILL WITH [PAIN ON THE LEFT TEMPORAL INCISION. NO DISTRESS NOTED. SAFETY MEASURES IN PLACE AND CALL LIGHT WITHIN REACH. WILL CONTINUE TO MONITOR.
[2020-03-09] MEDS ORDERED: DEC4 PO (10:46)
[2020-03-09] MEDS ORDERED: METO25TA PO (10:46)
--- NOTE | 2020-03-09 11:24 | NUR ---
FLU VACCINE GIVEN AT THIS TIME PATIENT TOLERATED WELL
[2020-03-09 12:00] VITALS: BP 144/71
[2020-03-09] MEDS ORDERED: LORA-476 PO (13:12)
--- NOTE | 2020-03-09 13:50 | NUR ---
DISCHARGED INSTRUCTIONS GIVEN TO THE [PATIENT ON THE BEDSIDE WITH THE ASSISTANCE OF A EVENT MARKETING SPECIALIST SWATHI CORDERO ID NO:[id number]. INSTRUCTED PATIENT TO CONTINUE MEDICATION PRESCRIBED, DOSAGE AND TO FOLLOW UP PCP IN 3-5 DAYS AND TO CALL [facility] FOR RESULT OF TEMPORAL BIOPSY. ENCOURAGED PATIENT TO SEEK MEDICAL HELP INCASE OF EMERGENCIES, ANSWERED ALL PATIENT QUESTION AND GAVE PRESCRIPTION OF LORAZEPAM PER DOCTORS ORDER,REMOVED TELEMONITOR AND RETURNED TO COMPUTER TRAINER, IV SITES INTACT AND COMPLETE NO BLEEDING. REMOVED ID BANDS, CHANGED PATIENT TO OWN CLOTHES AND PT TOOK ALL HER BELONGINGS. ESCORTED PATIENT TO FRONT LOBBY. PATIENT IS GOING HOME WITH HER FAMILY. PT IS STABLE.
[2020-03-09] MEDS ORDERED: CEPH250C16 PO (13:55)
== END 2020-03-09 13:50 | disposition home or self-care (01) | DRG 346 ==
LOC: MED 19:07 → MTU 03-07 00:33 → MMU 03-07 04:19
PROVIDERS: ADMIT Family Medicine; ATTEND Family Medicine
PROC: 03BT3ZX Excision of Left Temporal Artery, Percutaneous Approach, Diagnostic (ICD-10-PCS; principal; 2020-03-07)
PROC: 009U3ZX Drainage of Spinal Canal, Percutaneous Approach, Diagnostic (ICD-10-PCS; 2020-03-07)
DX: M31.6 Other giant cell arteritis (principal); I16.1 Hypertensive emergency; I67.4 Hypertensive encephalopathy; R65.10 Systemic inflammatory response syndrome (SIRS) of non-infectious origin without acute organ dysfunction; E83.39 Other disorders of phosphorus metabolism; E78.2 Mixed hyperlipidemia; M06.9 Rheumatoid arthritis, unspecified; I10 Essential (primary) hypertension; F41.9 Anxiety disorder, unspecified; F41.0 Panic disorder [episodic paroxysmal anxiety]; Z90.49 Acquired absence of other specified parts of digestive tract; Z88.6 Allergy status to analgesic agent; Z88.0 Allergy status to penicillin; Z83.3 Family history of diabetes mellitus; Z80.51 Family history of malignant neoplasm of kidney; Z82.49 Family history of ischemic heart disease and other diseases of the circulatory system; Z20.828 Contact with and (suspected) exposure to other viral communicable diseases
CPT/HCPCS: 36415; 62270; 70450; 71045; 76700; 80048; 80053; 80305; 81003; 82150; 82948; 83036; 83605; 83690; 83735; 83880; 84100; 84157; 84436; 84439; 84443; 84479; 84484; 85025; 85610; 85651; 85730; 86171; 87040; 87070; 87081; 87205; 96361; 96365; 96367; 96375; 99285; J0696; J0780; J1100; J1200; J1885; J2001; J2060; J2250; J2270; J2405; J2704; J2920; J2930; J3010; J3370; J3490; J7030; J7060; Q0092; U0003-CS

== ENCOUNTER 2021-05-26 12:38 | Emergency (ER) | payer MEDICAID, SELFPAY ==
[~2021-05-26] VITALS: Ht 160 cm; Wt 90.7 kg
[~2021-05-26 12:38] MED LIST changes: +CEPH250C16 PO; +DEC4 PO; -FOLIC ACID; -HYDR200T5; +METO25TA PO
[2021-05-26 12:41] VITALS: BP 174/100
[2021-05-26] MEDS ORDERED: HYDROcodone/APAP 5/325 MG 1 TAB TAB PO ONE (12:50)
--- NOTE | 2021-05-26 12:55 | NUR ---
shanita valentine assessing pt in triage at this time
--- NOTE | 2021-05-26 12:59 | NUR ---
60 Y/O FEMALE PATIENT PRESENTS TO ED WITH C/O LOW BACK PAIN THAT RADIATES DOWN LEFT LEG AND DYSURIA FOR 3 DAYS. PT DENIES N/V/D, INJURY, OVEREXERTION, AND HEMATURIA; SKIN IS PINK/WARM/DRY; AAOX4 WITH EVEN AND STEADY GAIT; LUNGS CLEAR BL; HR EVEN AND REGULAR; PT DENIES ANY FEVER, CP, SOB, OR COUGH AT THIS TIME; PATIENT STATES PAIN OF 10/10 AT THIS TIME. ER MD MADE AWARE OF PT STATUS. PMH: HTN, RA ALLERGY: AMOXICILLIN, ATORVASTATIN, LISINOPRIL MED: DENIES
[2021-05-26] MEDS ORDERED: ACET-8386 PO (13:12)
[2021-05-26] MEDS ORDERED: CEPH-588 PO (13:12)
[2021-05-26 13:32] VITALS: BP 174/100
--- NOTE | 2021-05-26 13:32 | NUR ---
Patient discharged with v/s stable. Written and verbal after care instructions given and explained. Patient alert, oriented and verbalized understanding of instructions. Ambulatory with steady gait. All questions addressed prior to discharge. ID band removed. Patient advised to follow up with PMD. Rx of HYDROCODONE-ACETAMINOPHEN AND KEFLEX given. Patient educated on indication of medication including possible reaction and side effects. Opportunity to ask questions provided and answered.
== END 2021-05-26 13:32 | disposition home or self-care (01) ==
LOC: MED 12:38
DX: N39.0 Urinary tract infection, site not specified (principal); I10 Essential (primary) hypertension; Z90.49 Acquired absence of other specified parts of digestive tract; Z79.899 Other long term (current) drug therapy; Z88.1 Allergy status to other antibiotic agents; Z88.8 Allergy status to other drugs, medicaments and biological substances
CPT/HCPCS: 81002; 99283

== ENCOUNTER 2024-01-04 05:55 | Emergency (ER) | payer MEDICAID ==
[~2024-01-04] VITALS: Ht 162.6 cm; Wt 90.7 kg
[~2024-01-04 05:55] MED LIST changes: +ACET-8905 PO; +CEPH-588 PO
[2024-01-04 06:05] VITALS: BP 144/89; PULSE 84; RESP 14; TEMP 101.7; O2SAT 98; O2SAT 99
[2024-01-04] MEDS: IBUPROFEN 800 MG TAB PO ONE (06:46)
[2024-01-04 07:25] LABS: FLU A ANTIGEN negative (NEGATIVE); FLU B ANTIGEN negative (NEGATIVE)
[2024-01-04 08:28] LABS: APPEARANCE,URINE CLEAR (CLEAR); BILIRUBIN,URINE NEGATIVE (NEGATIVE); BLOOD, URINE NEGATIVE (NEGATIVE); COLOR,URINE YELLOW (YELLOW); LEUKOCYTE ESTERASE ,URINE 3+ (NEGATIVE); NITRITE, URINE NEGATIVE (NEGATIVE); PROTEIN,URINE NEGATIVE (NEGATIVE); UGLUCOSE NEGATIVE (NEGATIVE); UROBILINOGEN,URINE 0.2 EU/dL (0.2 - 1)
[2024-01-04 08:36] LABS: BACTERIA,URINE 3+ /HPF (None Seen); MUCUS,URINE 3+ /LPF (None Seen); SQUAMOUS EPITHELIAL CELL,UR 20-50 /LPF (0-3 (FEW)); WBC,URINE 20-60 /HPF (0-5)
[2024-01-04 08:42] VITALS: BP 130/61; PULSE 80; RESP 15; TEMP 98.9; O2SAT 99
[2024-01-04] MEDS ORDERED: ACET500T99 PO (08:42)
[2024-01-04] MEDS ORDERED: IBUP-2218 PO (08:42)
[2024-01-04] MEDS ORDERED: NITR100C7 PO (08:42)
[2024-01-04] MEDS: ACETAMINOPHEN EXTRA STRENGTH 500 MG TAB PO ONE (08:46)
== END 2024-01-04 09:10 | disposition home or self-care (01) ==
LOC: MED 05:55
DX: U07.1 COVID-19 (principal); N39.0 Urinary tract infection, site not specified; I10 Essential (primary) hypertension; Z79.899 Other long term (current) drug therapy; Z88.0 Allergy status to penicillin; Z88.8 Allergy status to other drugs, medicaments and biological substances
CPT/HCPCS: 71045; 81001; 87086; 87426; 87804; 99284; Q0092